=== PATIENT | male | born 1995 | race Caucasian/White ===

== ENCOUNTER 2021-07-09 14:06 | Emergency (ER) | payer OTHER, SELFPAY ==
[2021-07-09 14:06] VITALS: BP 133/80; PULSE 101; RESP 18; TEMP 36.7; O2SAT 100
--- NOTE | 2021-07-09 14:09 | ED.DENTAL ---
HPI - Dental/Oral General Chief complaint: Dental/Oral Stated complaint: tooth pain Time Seen by Provider: 07/09/21 14:09 Source: patient and RN notes reviewed History of Present Illness HPI Narrative: Patient is a 25-year-old male who presents the urgent care with complaints of upper left dental pain that started approximately 3 to 4 days ago. Patient states that he has been taking ibuprofen, Tylenol and using naproxen. Patient has also put Orajel on his gums. States that he has noticed some swelling of the cheek as of the last 2 days. Denies of any fever, chills, nausea or vomiting. No other acute complaints. No acute distress noted. Patient aware of the plan of care. Some parts of this dictation were generated by voice recognition software and may contain typographical and/or grammatical inaccuracies. Related Data Home Medications Medication Instructions Recorded Confirmed naproxen 500 mg PO BID PRN 07/09/21 07/09/21 Allergies Allergy/AdvReac Type Severity Reaction Status Date / Time No Known Allergies Allergy Verified 07/09/21 14:18 Review of Systems Review of Systems: CONSTITUTIONAL: Denies fever, chills, or sweats. EYES: Denies visual changes, redness, or discharge. ENT: Denies rhinorrhea, congestion, sore throat, or otalgia. Reports of upper left dental pain CARDIOVASCULAR: Denies chest pain, palpitations, or edema. RESPIRATORY: Denies cough or dyspnea. GASTROINTESTINAL: Denies abdominal pain, nausea, vomiting, or diarrhea. GENITOURINARY: Denies dysuria or hematuria. SKIN: Denies rash or itching. MUSCULOSKELETAL: Denies back pain, joint pain, or myalgia. NEUROLOGIC: Denies headache, numbness, or weakness. All other systems reviewed are negative, except as documented in HPI. PMFSH Comments At the time of my signature, I reviewed and agree with the nursing past medical, surgical, social, and family history. There is no relevant family history pertinent to the patient complaint. Exam Narrative: GENERAL: This is a well-nourished, well-developed patient, in no apparent distress. HEAD: normocephalic, atraumatic. EYES: PERRL. Sclera clear/white. Vision is grossly intact. EARS: External ears normal NOSE: External nose normal with no obvious nasal discharge, nares without redness, no rhinorrhea. THROAT: Mucous membranes moist, posterior pharynx clear. DENTAL: Erythema and mild edema surrounding tooth #16 NECK: Neck supple CARDIOVASCULAR: Regular rate and rhythm without murmurs, gallops, or rubs. RESPIRATORY: Clear to auscultation. Breath sounds equal bilaterally. No wheezes, rales, or rhonchi. SKIN: warm, intact with no suspicious lesions or rash, good texture and turgor. NEURO: awake, alert, and oriented to person, place and time. There were no obvious focal neurologic abnormalities. EXTREMITIES: No clubbing, cyanosis, or edema. Course Course Level of Care: Express Care Visit Vital Signs Vital signs: Vital Signs Temperature 98.1 F 07/09/21 14:06 Pulse Rate 101 H 07/09/21 14:06 Respiratory Rate 18 07/09/21 14:06 Blood Pressure 133/80 07/09/21 14:06 Pulse Oximetry 100 07/09/21 14:06 Temperature 98.1 F 07/09/21 14:06 Pulse Rate 101 H 07/09/21 14:06 Respiratory Rate 18 07/09/21 14:06 Blood Pressure 133/80 07/09/21 14:06 Pulse Oximetry 100 07/09/21 14:06 Reviewed MDM - Dental/Oral MDM Narrative Medical decision making narrative: Advised patient complete the oral antibiotic regimen as prescribed. Continue Tylenol/ibuprofen as needed for pain. If you develop any increase in symptoms associated with severe swelling, nausea, vomiting or fever?go to the emergency room. Is important to follow-up with an oral surgeon ONESIMO due to impacted wisdom tooth. Follow-up with your PCP within 2 to 5 days or for worsening symptoms or failure to improve. Differential Diagnosis Differential diagnosis: Likely gingival abscess, dental caries, toothache, dental abscess and fracture of tooth
[2021-07-09 14:16] VITALS: BP 126/83; PULSE 75; RESP 16; TEMP 37.4; O2SAT 100
== END 2021-07-09 14:29 | disposition home or self-care (01) ==
PROVIDERS: Emergency Provider Nurse Practitioner Family; PCP Nurse Practitioner Family
DX: K01.1 Impacted teeth (principal)
CPT/HCPCS: 99213; G0463

== ENCOUNTER 2021-10-16 13:45 | Emergency (ER) | payer OTHER, SELFPAY ==
--- NOTE | ~2021-10-16 | XR_ITS ---
EXAMINATION: XR elbow RT 2V DATE: 10/16/2021 14:02 INDICATION: Right elbow pain and swelling. Fall. TECHNIQUE: 4 views of right elbow were obtained. COMPARISON: None. FINDINGS: Bone alignment is normal. No fracture. Joint spaces are well maintained. There is soft tiss ue swelling and soft tissue gas overlying the olecranon. IMPRESSION: 1. No fracture. 2. Soft tissue swelling and soft tissue gas overlying the olecranon, likely from laceration. Reviewed, dictated and finalized at location A. IMPRESSION: 1. No fracture. 2. Soft tissue swelling and soft tissue gas overlying the olecranon, likely fro m laceration.
[2021-10-16 13:50] VITALS: BP 129/74; PULSE 105; RESP 16; TEMP 37.4; O2SAT 100
--- NOTE | 2021-10-16 13:58 | ED.UPPEXIN ---
HPI - Extremity Injury (Upper) General Chief Complaint: Extremity Injury, Upper Stated Complaint: right elbow injury Time Seen by Provider: 10/16/21 14:06 Source: patient and RN notes reviewed Mode of arrival: ambulatory Limitations: no limitations History of Present Illness HPI narrative: 26-year-old patient presents with concern for elbow injury and shoulder injury. 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 Reports swelling to the right elbow with abrasions. Reports right shoulder tenderness. Reports taking Aleve without relief complaint: injury to: right, shoulder and elbow Related Data Allergies Allergy/AdvReac Type Severity Reaction Status Date / Time No Known Allergies Allergy Verified 07/09/21 14:18 Review of Systems Review of Systems: CONSTITUTIONAL: Denies malaise, chills, sweats, or fever. CARDIOVASCULAR: Denies chest pain, palpitations, or edema. RESPIRATORY: Denies cough or dyspnea. SKIN: Denies rash or itching, bruising, redness, swelling. MUSCULOSKELETAL: Reports right elbow pain and swelling, right shoulder tenderness NEUROLOGIC: Denies numbness, weakness All systems reviewed & are unremarkable except as noted in HPI and below PMFSH Comments At time of signature, agree with nursing past medical, surgical, social and family history. There is no relevant family history pertinent to the presenting complaint Exam Narrative: GENERAL: Well-appearing, well-nourished, and in no acute distress. HEAD: Normocephalic, atraumatic. EYES: PERRLA, conjunctivae clear NECK: Supple. CHEST: Speaks in full sentences. No respiratory distress. HEART: Regular rate and rhythm. Normal and equal peripheral pulses. EXTREMITIES: Right upper extremity has normal strength and sensation. Grossly normal range of motion, mildly limited extension with the elbow. Moderate elbow edema without erythema warmth, or ecchymosis. Normal sensation with sensitivity to light touch and pain. No point tenderness. No open wounds, no skin tenting, no devitalized tissue or atrophy, no trophic changes, no obvious deformity, alignment normal, nearby joints and structures intact. Distal pulses palpable and equal bilaterally, skin warm, dry, pink. Capillary refill less than 3 seconds. SKIN: Warm, dry, no rash. Abrasion noted to the elbow, no foreign body visible NEURO: Alert and oriented x3. PSYCH: Normal mood and affect Course Course Emergency Course: Patient is aware of diagnosis, understands and agrees to treatment plan. Anticipatory guidance given. Patient agrees to follow-up as directed and is aware of reasons to seek care at the emergency department. Portions of this record may have been created with voice recognition software Level of Care: Express Care Visit Vital Signs Vital signs: Vital Signs Temperature 99.4 F 10/16/21 13:50 Pulse Rate 105 H 10/16/21 13:50 Respiratory Rate 16 10/16/21 13:50 Blood Pressure 129/74 10/16/21 13:50 Pulse Oximetry 100 10/16/21 13:50 Temperature 99.4 F 10/16/21 13:50 Pulse Rate 105 H 10/16/21 13:50 Respiratory Rate 16 10/16/21 13:50 Blood Pressure 129/74 10/16/21 13:50 Pulse Oximetry 100 10/16/21 13:50 Reviewed. MDM - Extremity Injury (Upper) MDM Narrative Medical decision making narrative: Patient instructed to follow-up for imaging if shoulder pain worsens or does not improve. Patients injury and pain is consistent with musculoskeletal etiology. No signs of neurological or vascular compromise on exam. Compartments and tissues are soft without signs of compartment syndrome. Pain is felt appropriate for further evaluation on an outpatient basis. Imaging Data My impression: Images reviewed, interpreted by radiologist, agree, see report. Radiologist's impression: EXAMINATION: XR elbow RT 2V DATE: 10/16/2021 14:02 INDICATION: Right elbow pain and swelling. Fall. TECHNIQUE: 4 views of right elbow were obtained. COMPARISON: None.
== END 2021-10-16 14:21 | disposition home or self-care (01) ==
PROVIDERS: Emergency Provider Nurse Practitioner; PCP Nurse Practitioner Family
DX: M25.511 Pain in right shoulder (principal); S59.901A Unspecified injury of right elbow, initial encounter; W19.XXXA Unspecified fall, initial encounter; Y99.0 Civilian activity done for income or pay
CPT/HCPCS: 73070; 99213; A4565; G0463

== ENCOUNTER 2022-06-28 14:40 | Emergency (ER) | payer OTHER, SELFPAY ==
--- NOTE | ~2022-06-28 | XR_ITS ---
EXAM: XR knee RT 3V DATE: 06/28/2022 15:29 HISTORY: knee injury X 1 day ago. anteromedial rt knee pain. . COMPARISON: None available. FINDINGS: Normal mineralization. No fracture or dislocation. No lytic or blastic lesion. Joint space s are maintained. No erosion or periosteal change. Soft tissues within normal limits. Moderate joint effusion. IMPRESSION: No acute osseous finding in the right knee. Reviewed, dictated and finalized at location K. ATOR CONSTRUCTOR HELPER
[2022-06-28 14:43] VITALS: BP 132/77; PULSE 98; RESP 16; TEMP 37; O2SAT 100
--- NOTE | 2022-06-28 15:59 | ED.LOWEXIN ---
HPI - Extremity Injury (Lower) General Chief Complaint: Extremity Injury, Lower Stated Complaint: right knee pain Time Seen by Provider: 06/28/22 15:52 History of Present Illness HPI Narrative: 26-year-old male here for evaluation of right knee pain over the past day. Patient states that he was wrestling yesterday with his foot planted and had a twisting injury to his knee. He felt the pop and warmth in his knee and has had pain ever since. Has not attempted any medicine for pain. Has been able to bear weight but just has been limping. Notes that his knee joint is warm but denies fevers or chills. Related Data Allergies Allergy/AdvReac Type Severity Reaction Status Date / Time No Known Allergies Allergy Verified 07/09/21 14:18 Review of Systems Review of Systems: Gen: Denies fevers or chills Eyes: Denies eye pain or visual change ENT: Denies congestion Respiratory: Denies shortness of breath or cough CV: Denies chest pain or palpitations GI: Denies abdominal pain nausea, emesis or diarrhea : denies burning, urgency, frequency or hematuria Musculoskeletal: Reports knee pain Neuro: Denies numbness, tingling, weakness or focal weakness Skin: Denies rash Except as documented, all other systems reviewed and negative Exam Narrative: Gen: alert, oriented, NAD Eyes: EOMI, no icterus Pulm: Respirations even and unlabored, symmetric thorax expansion, no audible stridor or visible cyanosis CV: Regular rate per telemetry GI: No distension, no voluntary/involuntary guarding Neuro: AOx4, moves all extremities without apparent difficulty or weakness, follows commands MSK: right knee joint is warm to touch, swelling noted to medial aspect of joint; FROM in lower extremity without pain; slight laxity noted with anterior drawer test. ambulatory with a limp. Skin: No jaundice, no visible bruising, rashes, lesions or wounds on exposed skin Psych: Normal mood/affect, insight/judgement good, adequate fund of knowledge, recent/remote memory intact Course Vital Signs Vital signs: Vital Signs Temperature 98.6 F 06/28/22 14:43 Pulse Rate 98 06/28/22 14:43 Respiratory Rate 16 06/28/22 14:43 Blood Pressure 132/77 06/28/22 14:43 Pulse Oximetry 100 06/28/22 14:43 Temperature 98.6 F 06/28/22 14:43 Pulse Rate 98 06/28/22 14:43 Respiratory Rate 16 06/28/22 14:43 Blood Pressure 132/77 06/28/22 14:43 Pulse Oximetry 100 06/28/22 14:43 MDM - Extremity Injury (Lower) MDM Narrative Medical decision making narrative: 26-year-old male here for evaluation of right knee pain after twisting injury and audible pop heard the day before. Patient has warmth and tenderness to palpation along the right knee, laxity noted with anterior drawer test consistent with ACL tear. nvid. Patient will be provided with knee immobilizer, crutches and orthopedic follow-up. Return precautions discussed and he voiced understanding. Discharge Plan Discharge Clinical Impression: Knee sprain Patient Disposition: Home, Self-Care Condition: Stable Instructions: Antibiotic Form, Knee Sprain (ED) Additional Instructions: You have likely department on the ligaments in your knee. Please wear the knee immobilizer and use the crutches until he can see the orthopedist. For pain, alternate between Tylenol and ibuprofen. You can take 1000mg of Tylenol every 6 hours and 600 mg Motrin/ibuprofen every 8 hours. Return to the ED if your pain is severe and management home medications. Prescriptions: New ibuprofen 600 mg tablet 600 mg PO Q6H PRN (Reason: fever or pain) Qty: 20 0RF No Action ibuprofen 800 mg tablet 800 mg PO Q6H PRN (Reason: pain) Qty: 30 0RF Follow-up/Referrals: Ernst Armendariz MD [Physician] - 3 Days Bueno,Padmini Moreno APN [Primary Care Provider] - Stand Alone Forms: Work/School Release IP
== END 2022-06-28 16:48 | disposition home or self-care (01) ==
LOC: ANHED 16:08
PROVIDERS: Emergency Provider Physician Assistant; PCP Nurse Practitioner Family
DX: S83.91XA Sprain of unspecified site of right knee, initial encounter (principal); X50.9XXA Other and unspecified overexertion or strenuous movements or postures, initial encounter; Y93.72 Activity, wrestling
CPT/HCPCS: 73562; 99283

== ENCOUNTER 2022-07-15 09:42 | Outpatient (CLI) | payer OTHER, SELFPAY ==
--- NOTE | ~2022-07-15 | MR_ITS ---
EXAMINATION: MR knee RT wo con DATE: 07/15/2022 10:12 INDICATION: Right knee pain TECHNIQUE: Magnetic resonance imaging (MRI) of the right knee was performed without intravenous contr ast. Sequences included coronal PD-weighted FSE, coronal PD-weighted FS FSE, sagittal T2-weighted FS E, sagittal PD-weighted FS FSE and axial PD weighted fat saturated FSE. COMPARISON: None. FINDINGS: Medial compartment: Medial meniscus is normal. Articular cartilage is normal. Lateral compartment: Lateral meniscus is normal. Articular cartilage is normal. Patellofemoral compartment: Articular cartilage is normal. Ligaments and tendons: Complete tear of the anterior cruciate ligament. The posterior cruciate ligament is normal. The media l collateral ligament and fibular collateral ligament complex are normal. The extensor mechanism is n ormal. The visualized medial and lateral hamstring tendons as well as the iliotibial band are normal. Fluid: Small right glenohumeral joint effusion. No loose osteochondral bodies identified. Osseous/other: There is prominent subarticular edema surrounding a subtle thin curvilinear low signal intensity suba rticular fracture line underlying the lateral sulcus of the lateral femoral condyle in typical locati on for an anterior tibial subluxation injury occurring in conjunction with the anterior cruciate liga ment tear. Additional small corresponding trabecular fracture lines surrounding edema along the poste rior rims of the medial and lateral tibial plateaus. Mild marrow edema without evident fracture line consistent with bone contusion along the medial rim of the anterior weightbearing medial femoral cond yle. Tiny low signal intensity bone island at the posterior medial femoral condyle. No pathologic mar row replacing process. IMPRESSION: 1. Constellation of findings consistent with an anterior tibial subluxation injury including complete tear of the anterior cruciate ligament and nondisplaced subarticular impaction fractures at the late ral sulcus of the lateral femoral condyle and along the posterior with the medial and lateral tibial plateaus and bone contusion along the anterior weightbearing medial femoral condyle. Reviewed, dictated and finalized at location L. CUTTER APPRENTICE IMPRESSION: 1. Constellation of findings consistent with an anterior tibial subluxation inj ury including complete tear of the anterior cruciate ligament and nondisplaced subarticular impaction fractures at the lateral sulcus of the lateral femoral c ondyle and along the posterior with the medial and lateral tibial plateaus and bone contusion along the anterior weightbearing medial femoral condyle.
== END 2022-07-15 09:43 ==
PROVIDERS: PCP Nurse Practitioner Family; Visit Provider Orthopaedic Surgery
DX: S83.511A Sprain of anterior cruciate ligament of right knee, initial encounter (principal); S72.424A Nondisplaced fracture of lateral condyle of right femur, initial encounter for closed fracture; S82.144A Nondisplaced bicondylar fracture of right tibia, initial encounter for closed fracture; S70.11XA Contusion of right thigh, initial encounter; X58.XXXA Exposure to other specified factors, initial encounter
CPT/HCPCS: 73721

== ENCOUNTER 2025-01-09 17:08 | Emergency (ER) | payer OTHER, SELFPAY ==
--- OUTSIDE RECORDS SUMMARY | 2025-01-09 17:10 | XMS_ITS | Clinical Summary ---
Author Organization [facility] Address [address] [place] [address] Phone Care Team Providers Care Soft Boarder Name Role Phone Ximena, Padmini TELLO CNP Primary Care Provider [phone] Allergies No known active allergies Medications HYDROcodone-garo taminophen (NORCO) 5-325 MG Tablet Take 1-2 Tabs by mouth every 4 hours as needed for Moderate or more severe pain. 20 Tab 8 Active Additional Information Patient not taking.Reported on 01/31/2021 Immunizations Immunization Administration Dates Next Due TDAP Vaccine 01/10/2018 Social History Tobacco Use Types Packs/Day Years Used Date Smoking Tobacco: Every Day Cigarettes Smokeless Tobacco: Never Alcohol Use Standard Drinks/Week Comments Yes 0 (1 standard drink = 0.6 oz pur e alcohol) social drinking Comments No Sex and Gender Information Value Date Recorded Sex Assigned at Not on file Legal Sex Female 12:01 AM CDT Gender Identity Not on file Sexual Orientation Not on file Last Filed Vital Signs Vital Sign Reading Time Taken Comments Blood Pressure 128/76 01/10/2018 1:30 PM CDT Pulse 96 01/10/2018 2:15 PM CDT Temperature 37.1 C (98.7 F) 01/10/2018 1:30 PM CDT Respiratory Rate 16 01/10/2018 1:30 PM CDT Oxygen Saturation 100% 01/10/2018 2:15 PM CDT Inhaled Oxygen Concentration - - Weight 52.2 kg (115 lb) 01/10/2018 1:30 PM CDT Height 157.5 cm (5' 2) 01/10/2018 1:30 PM CDT Body Mass Index 21.03 01/10/2018 1:30 PM CDT Plan of Treatment Health Maintenance Due Date Last Done Comments Hepatitis C Virus (HCV) Screening 1996 SARS-COV-2 Immunization ( season) 2024 01/18/2021 Influenza Immunization (#1) 2025 11/0 01/2012, 05/12/2003, 04/07/2003 Respiratory Syncytial Virus (RSV) Immunization (Adult) (1 - 1-dose 75+ series) 2071 Hepatitis B Immunization Completed 997, 1996, 1996 Pneumococcal Immunization Combined Aged Out 11/17/2001 No longer eligible based on patient's age to complete this topic Human Papillomavirus (HPV) Immunization Completed 05/23/2011, 01/22/2011, 01/15/2009 Meningococcal Immunization (ACWY) Completed 10/01/2012, 01/11/2008 DTaP/Tdap/Td Immunization Discontinued 2017, 03/09/2007, 02/28/2002, Additional history exists Rotavirus Immunization Aged Out No lo nger eligible based on patient's age to complete this topic Insurance [place] [employer] Care Teams Soft Boarder Relationship Specialty Start Date End Date Bueno, ELISHA [place], DESKTOP ANALYST [address] [place] [address] PCP - General Family Medicine 01/07/21
--- OUTSIDE RECORDS SUMMARY | 2025-01-09 17:10 | XMS_ITS | Clinical Summary ---
Author Organization [facility] Address [address] [place] [id number] Care Team Providers Care Coiler Operator Name Role Phone No, Physician Primary Care Provider [phone] Allergies No known active allergies Medications permethrin (ELIMITE) 5 % cream apply by topical route (thoroughly massage into skin from head to soles of feet) once leave on for 8-14 hr, then remove by thorough washing 1 11/01/2014 Active Active Problems Problem Noted Date Diagnosed Date Infestation by Sarcoptes scabiei 11/01/2014 Overview (09/26/2016): Scabies Family History Medical History Relation Name Comments Diabetes Father Diabetes mellit us; Diabetes type II Father Diabetes me llitus type 2; Heart disease Father Cardiovascular disease; Heart disease Mother Cardiovascular disease; Hypertension Mother Hypertension; Breast cancer Other 1 MGGM Cancer, breast ; Hypertension Other 2 Family history of Hypertension; RED 10/18/2015 - MGM, MGF, [place] Diabetes Paternal Grandfather Diabete s mellitus; Diabetes type II Paternal Grandfather Fatimah betes mellitus type 2; Relation Name Status Comments Father Mother Other 1 MGGM Other 2 Paternal Grandfather Social History Tobacco Use Types Packs/Day Years Used Date Smoking Tobacco: Light Smoker Comments:Smoking History Pac ks/day: 5 Cigarettes Alcohol Use Standard Drinks/Week Comments No 0 (1 standard drink = 0.6 oz pur e alcohol) Personal Safety Answer Date Recorded Getting School Help Needed Not on file 08/01 Comments No Sex and Gender Information Value Date Recorded Sex Assigned at Not on file 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 Gender Identity Not on file Sexual Orientation Not on file Obstetrics History Last Filed Vital Signs Vital Sign Reading Time Taken Comments Blood Pressure 109/69 10/18/2020 9:00 PM CDT Pulse 66 10/18/2020 9:00 PM CDT Temperature 37.2 C (98.9 F) 10/18/2020 6:12 PM CDT Respiratory Rate 18 10/18/2020 6:12 PM CDT Oxygen Saturation 98% 10/18/2020 9:00 PM CDT Inhaled Oxygen Concentration - - Weight 54.4 kg (120 lb) 10/18/2020 6:12 PM CDT Height 154.9 cm (5' 1) 10/18/2020 6:12 PM CDT Body Mass Index 22.67 10/18/2020 6:12 PM CDT Plan of Treatment Health Maintenance Due Date Last Done Comments Cervical Cancer Screening 1996 Depression Screening 1996 Hepatitis C Screening 1996 Varicella Vaccines (1 of 2 - 13+ 2-dose series) 2009 Hepatitis B Screening 2014 Regular Well Visit/Exam 18-64 2014 Pneumococcal vaccine <65 (1 of 2 - PCV) 2015 Influenza Vaccine (#1) 2025 DTaP/Tdap/Td Vaccine (2 - Td or Tdap) 01/11/2028 01/10/2018 HPV Vaccines Aged Out No longer eligi ble based on patient's age to complete this topic Insurance CHOICE PLUS [facility] CHOICE PLUS Care Teams Coiler Operator Relationship Specialty Start Date End Date No, Physician PCP - General 10/18/20
--- OUTSIDE RECORDS SUMMARY | 2025-01-09 17:10 | XMS_ITS | Referral Summary ---
Author Organization [facility] Address [address] [place] [id number] Care Team Providers Care Meeting Facilitator Name Role Phone No, Physician Primary Care Provider [phone] Allergies No known active allergies Medications permethrin (ELIMITE) 5 % cream apply by topical route (thoroughly massage into skin from head to soles of feet) once leave on for 8-14 hr, then remove by thorough washing 1 11/01/2014 Active Active Problems Problem Noted Date Diagnosed Date Infestation by Sarcoptes scabiei 11/01/2014 Overview (09/26/2016): Scabies Social History Tobacco Use Types Packs/Day Years [...] on file 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
--- OUTSIDE RECORDS SUMMARY | 2025-01-09 17:10 | XMS_ITS | Clinical Summary ---
Author Organization [facility] Address [address] [place] [phone] Care Team Providers Care Oyster Worker Name Role Phone Unavailable Primary Care Provider Unavailabl e Social History Tobacco Use Types Packs/Day Years Used Date Smoking Tobacco: Never Assessed Comments Unknown Sex and Gender Information Value Date Recorded Sex Assigned at Not on file Legal Sex Female 6:59 PM LIFE INSURANCE SALES AGENT Gender Identity Not on file Sexual Orientation Not on file Plan of Treatment Health Maintenance Due Date Last Done Comments HPV VACCINES (1 - 3-dose series) 2011 DTAP/TDAP/TD VACCINES (1 - Tdap) 2015 HEPATITIS B VACCINES (1 of 3 - 19+ 3-dose series) 07/23 CERVICAL CANCER SCREENING 2017 HPV/Cotest (21-29) 2017 PAP SMEAR 2017 INFLUENZA VACCINE (#1) 2025
--- OUTSIDE RECORDS SUMMARY | 2025-01-09 17:10 | XMS_ITS | Clinical Summary ---
Author Organization [facility] Address [address] [facility] [address] [facility] [place] [address] Care Team Providers Care Concrete Stone Finisher Name Role Phone Unavailable Primary Care Provider Unavailabl e Source Comments [facility],non-owned Affiliates and Associated Physician Practices is amultiple site organization consisting of ambulatory clinics and hospital sitesin [place], [place], [place] and [place]. This disclosure is being madepursuant to the Care Everywhere program and may not contain all information available regarding this patient. Last updated 18.[facility] Allergies Active Allergy Reactions Criticality Noted Date Comments Red Dye 07/02/2016 Itchy, swollen throat Medications * This document contains information received from the source organization and may not represent a complete record from that organization. * Be aware that medications may not be up to date on this document. Alwaysverify current medications with the patient. venlafaxine XR 24hr (EFFEXOR XR) 75 MG capsuleIndicati ons:Major Depressive Disorder Take 1 Cap by mouth daily with breakfast Reasons: Major Depressive Disorder 30 Cap 1 7 Active ARIPiprazole (ABILIFY) 10 MG tabletIndicatio ns:Major Depressive Disorder Take 1 Tab by mouth once daily Reasons: Major Depressive Disorder 30 Tab 1 7 Active nicotine (NICODERM CQ) 21 MG/24HR patchIndication s:Nicotine Dependence Apply 1 Patch to skin once daily Remove old patch before applying new patch. Reasons: Nicotine Addiction 7 Active Active Problems Problem Noted Date Diagnosed Date Patient nonadherence 06/29/2016 Polysubstance dependence 06/29/2016 Overview (06/29/2016): Marijuana, stimulant, benzo, etc. MDD (major depressive disorder) 06/29/2016 Borderline personality disorder 06/29/2016 Social History Tobacco Use Types Packs/Day Years Used Date Smoking Tobacco: Every Day Cigarettes Smokeless Tobacco: Never Tobacco Cessation:Ready to Q uit: No; Counseling Given: Yes Alcohol Use Standard Drinks/Week Comments No 0 (1 standard drink = 0.6 oz pur e alcohol) Comments No Sex and Gender Information Value Date Recorded Sex Assigned at Not on file Legal Sex Female 5:39 AM QUALITY SPECIALIST Gender Identity Not on file Sexual Orientation Not on file Last Filed Vital Signs Vital Sign Reading Time Taken Comments Blood Pressure 110/77 07/03/2016 8:28 AM QUALITY SPECIALIST Pulse 118 07/03/2016 8:28 AM QUALITY SPECIALIST Temperature 36.6 C (97.8 F) 07/03/2016 8:28 AM QUALITY SPECIALIST Respiratory Rate 16 07/03/2016 8:28 AM QUALITY SPECIALIST Oxygen Saturation 100% 07/03/2016 8:28 AM QUALITY SPECIALIST Inhaled Oxygen Concentration - - Weight 47.1 kg (103 lb 12.8 oz) 07/01/2016 9:40 AM QUALITY SPECIALIST Height 157.5 cm (5' 2) 07/01/2016 9:40 AM QUALITY SPECIALIST Body Mass Index 18.99 07/01/2016 9:40 AM QUALITY SPECIALIST Plan of Treatment Health Maintenance Due Date Last Done Comments HIV SCREENING 2011 HEPATITIS C SCREENING 07/28/2014 DTAP/TDAP/TD VACCINES (1 - Tdap) 2015 HEPATITIS B VACCINE (1 of 3 - 19+ 3-dose series) 2015 PNEUMOCOCCAL VACCINE (1 of 2 - PCV) 2015 HPV VACCINE (1 - 3-dose SCDM series) 2023 COVID-19 VACCINE (1 - 2023-2 5 season) 2024 DEPRESSION SCREENING 06/22/2024 INFLUENZA VACCINE (#1) 2025 ZOSTER VACCINE (1 of 2) 2046 HIB VACCINE Aged Out No longer eligi ble based on patient's age to complete this topic MENINGOCOCCAL (Group B) VACC INE SHARED DECISION-MAKING Aged Out No longer eligibl e based on patient's age to complete this topic MENINGOCOCCAL GROUPS A/C/Y/W VACCINE Aged Out No longer eligible b ased on patient's age to complete this topic Insurance HEALTH CARE CARE HEALTH CARE Advance Directives * Full Code (Latest Code Status on File) Date Activated Date Inactivated Comments 06/28/2016 9:39 PM 07/03/2016 2:49 PM * Full Code Date Activated Date Inactivated Comments 06/28/2016 9:12 PM 06/28/2016 9:39 PM * Full Code Date Activated Date Inactivated Comments 08/31/2012 2:25 PM 09/03/2012 3:23 PM
[2025-01-09 17:14] VITALS: BP 115/74; PULSE 83; RESP 20; TEMP 36.8; O2SAT 100
--- NOTE | 2025-01-09 17:25 | ED_ITS ---
HPI - Dental/Oral General Chief complaint: Dental/Oral Stated complaint: tooth abcess Time Seen by Provider: 01/09/25 17:26 Source: patient, RN notes reviewed and old records reviewed Mode of arrival: ambulatory Limitations: no limitations History of Present Illness HPI Narrative: 29-year-old female presents to the [facility] with concerns for an abscess to the right upper gingiva. States that started on Thursday. Has a broken tooth. Has taken ibuprofen. No drainage noted. Related Data Allergies Allergy/AdvReac Type Severity Reaction Status Date / Time No Known Allergies Allergy Verified 01/09/25 17:26 Review of Systems Review of Systems: All systems reviewed & are unremarkable except as noted in HPI and below Constitutional: Constitutional: Reports no additional constitutional complaints ENT: Reports as per HPI and Reports dental pain PMFSH Past Medical History Medical History Anxiety Claustrophobia Rupture of anterior cruciate ligament of right knee (~06/2022) 06/27/22 Family History Family History Other Arthritis Cancer of kidney Diabetes mellitus Hypertension Lung cancer Social History Social History Smoking packs per day: 0.5 Smoking cigarettes per day: 10.0 Years smoked: 10 Smoking pack-years: 5.00 Smoking status: Current every day smoker Tobacco type: cigarettes and e-cigarettes/vaping Alcohol intake: current Alcohol use details: 2 drinks per month Substance use: current Substance use type: marijuana Lack of Transportation: No Lack of Food: Never True Current Housing: I Have Housing Concerned About Future Housing: No Difficulty Paying Gas/Electric Bills: No Difficulty Paying for Meds: No Currently Unemployed: No Education: High School Diploma/GED Difficulty w/ Childcare or Family Care: No Living arrangements: with family Additional living arrangements comments: With Mother Occupation/Education: occupation Additional occupation/education comments: Multiple [employer] Gender identity (if verbalized by the patient): Female Sexual Orientation (if Verbalized by the Patient): Lesbian, Bourne, or Homosexual Spiritual care concerns: No Agree to blood products: Yes Comments At the time of my signature, I reviewed and agree with the nursing past medical, surgical, social, and family history. There is no relevant family history pertinent to the patient complaint. Exam Const: General: cooperative, healthy appearing, comfortable, no acute distress, well developed, alert and well nourished Nutritional Appearance: well nourished Orientation/consciousness: patient oriented x3 Limitations: no limitations HENMT: Head: normal to inspection Ears: hearing grossly normal bilaterally, external ears normal, TM's normal bilaterally, EAC's normal, mastoids normal and no periauricular adenopathy Mouth: Yes Normal oral and palatal mucosa present, Yes lip normal, Yes tongue normal and Yes moist mucous membranes Teeth and gingiva: abnormal tooth and associated gingiva (Right upper), caries and fair dentition Eyes: General: appearance normal, both eyes and all related structures Alignment and Position: alignment normal Neck: Neck: normal visual inspection, full ROM, no lymphadenopathy and no meningeal signs Chest: Chest palpation & inspection: normal inspection of the chest Resp: Effort & Inspection: normal respiratory effort and able to speak in complete sentences Cardio: Rate: regular rate Skin: General skin exam: normal color and no rashes or lesions noted Neuro: General: patient oriented x3, gait normal, moves all extremities and no meningeal signs Cognition (Neuro): normal cognition Speech: normal speech Gait exam (Neuro): Normal gait present Extrem: General: normal to inspection, full ROM, capillary refill normal and normal gait Psych: Appearance: grossly normal and well kempt Mental Status: mental status grossly normal Speech and movement: Normal speech and movement present and Clear speech present Affect: normal affect Attitude: cooperative Course Course Level of Care: Express Care Visit Vital Signs Vital signs: Vital Signs Temperature 98.3 F 01/09/25 17:14 Pulse Rate 83 01/09/25 17:14 Respiratory Rate 01/09/25 17:14 Blood Pressure 115/74 01/09/25 17:14 Pulse Oximetry 100 01/09/25 17:14 Oxygen Delivery Room Air 01/09/25 17:14 Temperature 98.3 F 01/09/25 17:14 Pulse Rate 83 01/09/25 17:14 Respiratory Rate 01/09/25 17:14 Blood Pressure 115/74 01/09/25 17:14 Pulse Oximetry 100 01/09/25 17:14 Oxygen Delivery Room Air 01/09/25 17:14 Reviewed MDM - Dental/Oral MDM Narrative Medical decision making narrative: Patient sitting in exam room. Patient is nontoxic, vitals stable. Patient presents with right upper dental issues. Patient's concern for an abscess. Swelling is noted, abnormal gingiva. Will cover with antibiotics, list of dental providers given. Patient appropriate for outpatient treatment with follow-up Discharge instructions reviewed with patient, as well as provided in writing per nursing staff. The instructions also include specific and strict return/GO TO THE ER as well as f/u information. All questions have been answered, and the patient deny any further questions with discharge and discharge plan. Some parts of this dictation were generated by voice recognition software and may contain typographical and/or grammatical inaccuracies. Differential Diagnosis Differential diagnosis: Likely gingival abscess, dental caries, toothache, dental abscess and fracture of tooth Critical Care Time Critical Care Time Critical Care Time: No Discharge Plan Discharge Clinical Impression: Toothache Patient Disposition: Home Condition: Stable Instructions: Antibiotic Form, Toothache (ED) Additional Instructions: Finish the entire course of antibiotics Pressure teeth in use a good mouthwash 2 to 3 times a day After every time you eat be sure to use salt water rinses. Apply ice to face to help with pain. Take Tylenol alternating with Motrin as needed for pain. You can alternate every 4 hours You need to follow-up with a dental provider as soon as possible for further evaluation and treatment. A list of dental providers has been given to you Follow up with a Primary Care Provider (PCP) about medical needs. A PCP can help keep you healthy by preventive medicine and screening. Go to the ER for New or worsening symptoms. Patient Language: Senegalese Prescriptions: New amoxicillin 875 mg tablet 875 mg PO Q12H Qty: 20 0RF No Action sertraline [Zoloft] 25 mg tablet 25 mg PO DAILY Qty: 90 0RF ibuprofen 600 mg tablet 600 mg PO Q6H PRN (Reason: fever or pain) Qty: 20 0RF cholecalciferol (vitamin D3) 1,250 mcg (50,000 unit) tablet 1,250 mcg PO WEEKLY Qty: 12 1RF Follow-up/Referrals: PHYSICIAN,HYDROPONICS WORKER [Primary Care Provider] - Stand Alone Forms: Work/School Release IP Time of Disposition: 17:31
== END 2025-01-09 17:40 | disposition home or self-care (01) ==
PROVIDERS: Emergency Provider Nurse Practitioner
DX: K08.89 Other specified disorders of teeth and supporting structures (principal); F17.210 Nicotine dependence, cigarettes, uncomplicated
CPT/HCPCS: 99213; G0463